=== PATIENT | male | born 1960 | race Caucasian/White ===

== ENCOUNTER 2021-02-16 09:07 | Emergency (ER) | payer OTHER ==
[~2021-02-16] VITALS: Ht 172.7 cm; Wt 93.5 kg
[2021-02-16] MEDS ORDERED: ALBU8.5H (09:34)
[2021-02-16] MEDS ORDERED: CETI-24 (09:34)
[2021-02-16] MEDS ORDERED: ATOR1TAB21 PO (09:34)
[2021-02-16] MEDS ORDERED: PRED20TA (09:34)
[2021-02-16] MEDS ORDERED: FLUTISP (09:34)
[2021-02-16] MEDS ORDERED: METO1TAB87 PO (09:34)
--- NOTE | 2021-02-16 10:08 | REPVR ---
PROCEDURE INFORMATION: Exam: CT Head Without Contrast Exam date and time: 02/16/2021 9:57 AM Age: 60 years old Clinical indication: Other: Confusion; Additional info: CVA - nursing interventions must not delay CT TECHNIQUE: Imaging protocol: Computed tomography of the head without contrast. Radiation optimization: All CT scans at this facility use at least one of these dose optimization techniques: automated exposure control; mA and/or kV adjustment per patient size (includes targeted exams where dose is matched to clinical indication); or iterative reconstruction. Other technique: STROKE PROTOCOL was implemented. COMPARISON: No relevant prior studies available. FINDINGS: Brain: Normal. No hemorrhage. Unremarkable white matter. No mass effect. Cerebral ventricles: No ventriculomegaly. Paranasal sinuses: Dependent fluid/mucous posterior right maxillary and sphenoid sinuses. Patchy bilateral ethmoid and inferior frontal sinus mucosal thickening. Mastoid air cells: Visualized mastoid air cells are well aerated. Bones/joints: No acute abnormality. No acute fracture. Soft tissues: Unremarkable. IMPRESSION: 1. No acute intracranial abnormality identified. 2. Incidental paranasal sinus disease as above. ASSESSMENT: ASPECTS ([employer] Stroke Program Early CT Score) is 10. Electronically signed by: Trenton Hamlin On 02/16/2021 10:07:43 AM
--- NOTE | 2021-02-16 10:09 | REP ---
INDICATION: CVA COMPARISON: None. TECHNIQUE: Portable AP view of the chest FINDINGS: The mediastinum and cardiac silhouette are within normal limits for portable technique. The lung hernandez are clear without acute consolidation, effusion, or pneumothorax. Skeletal structures are intact. IMPRESSION: No acute cardiopulmonary process appreciated. <Electronically signed by Jamal Chao > 02/16/21 [id number]
[2021-02-16 10:28] LABS: HEMATOCRIT 42.8 % (42.0-52.0); HEMOGLOBIN 14.7 g/dl (13.5-17.5); MEAN CORPUSCULAR HEMOGLOBIN 30.1 pg (27.0-33.0); MEAN CORPUSCULAR HGB CONC 34.3 g/dl (32.0-36.5); MEAN CORPUSCULAR VOLUME 87.7 fl (80.0-96.0); PLATELET COUNT, AUTOMATED 320 10^3/uL (150-450); RED BLOOD COUNT 4.88 10^6/uL (4.30-6.10); WHITE BLOOD COUNT 13.1 10^3/uL (4.0-10.0)
[2021-02-16 10:36] LABS: INR 0.93; PARTIAL THROMBOPLASTIN TIME 29.6 SECONDS (25.9-37.0); PROTHROMBIN TIME 12.8 SECONDS (12.7-14.5)
[2021-02-16 10:54] LABS: ALBUMIN 4.2 GM/DL (3.2-5.2); BILIRUBIN,DIRECT 0.2 MG/DL (0.0-0.2); BILIRUBIN,TOTAL 0.6 MG/DL (0.2-1.0); CALCIUM LEVEL 9.6 MG/DL (8.5-10.1); CREATININE FOR GFR 1.33 MG/DL (0.70-1.30); GLOMERULAR FILTRATION RATE 58.8 (>56); POTASSIUM SERUM 4.2 MEQ/L (3.5-5.1); THYROID STIMULATING HORMONE 0.505 uIU/ML (0.358-3.740); TOTAL PROTEIN 8.2 GM/DL (6.4-8.2)
[2021-02-16 11:06] LABS: BASOPHILS 1 % (0-1); EOSINOPHILS 1 % (0-3); LYMPHOCYTES 8 % (16-44); MONOCYTES 5 % (0-5); NEUTROPHILS 82 % (28-66); PLATELET ESTIMATE NORMAL (NORMAL)
[2021-02-16 12:00] VITALS: BP 129/87
--- NOTE | 2021-02-16 12:53 | REPVR ---
PROCEDURE INFORMATION: Exam: MR Head Without Contrast Exam date and time: 02/16/2021 12:28 PM Age: 60 years old Clinical indication: Weakness, facial; Additional info: Hearing loss right, facial parasthesia right TECHNIQUE: Imaging protocol: MR of the head without contrast. COMPARISON: CT Head without contrast 02/16/2021 9:53 AM FINDINGS: Brain: Normal. No acute infarct. No hemorrhage. No significant white matter disease. No edema. Cerebral ventricles: Normal. No ventriculomegaly. Bones/joints: No acute abnormality identified. Paranasal sinuses: Dependent fluid/mucous right maxillary sinus, mild inferior right maxillary sinus mucosal thickening. Dependent fluid/mucous right sphenoid sinus, moderate lateral right sphenoid sinus mucosal thickening. Mastoid air cells: Bilateral mastoid partial effusions. Orbital cavity: Unremarkable. Soft tissues: Unremarkable. IMPRESSION: 1. No acute intracranial abnormality identified. 2. Incidental paranasal sinus disease as above. 3. Bilateral mastoid partial effusions. Electronically signed by: Trenton Hamlin On 02/16/2021 12:52:48 PM
[2021-02-16] MEDS ORDERED: AUGM875T28 PO (14:52)
--- NOTE | 2021-02-17 05:46 | ECGEPIP ---
[facility] - ED Test Date: 2021-02-16 Pat Name: BARBARA TRIPP Department: Room: - Gender: Male [employer]ice: TUCKER : 1960 Requested By: RICKY Hitchcock Order Number: [id number] Reading MD: Jose Kahn Measurements Intervals [place] Rate: 59 P: 16 MO: 196 QRS: -11 QRSD: 88 T: 8 QT: 396 QTc: 392 Interpretive Statements Sinus bradycardia Minimal voltage criteria for LVH, may be normal variant ( R in aVL ) NONSPECIFIC T WAVE ABNORMALITY(S) NO PRIORS FOR COMPARISON Electronically Signed on 02-17-2021 5:46:09 EST by Jose Kahn
== END 2021-02-16 15:51 | disposition home or self-care (01) ==
LOC: M ED 09:07
DX: J01.90 Acute sinusitis, unspecified (principal); I10 Essential (primary) hypertension; E78.5 Hyperlipidemia, unspecified; R00.1 Bradycardia, unspecified; Z82.3 Family history of stroke